=== PATIENT | female | born 1995 | race Caucasian/White ===

== ENCOUNTER → 2017-06-18 | Outpatient (CLI) | payer BC ==
--- NOTE | 2017-06-18 15:07 | DIAGNOSTIC IMAGING REPORT ---
CHEST 2 VIEWS ROUTINE HISTORY: 21 years-old Female R09.89,J11.1 acute abnormal breath sounds COMPARISON: None available TECHNIQUE: PA and lateral views of the chest FINDINGS: Cardiomediastinal and hilar silhouettes are within normal limits. There is no pneumothorax, pleural effusion, focal airspace consolidation or overt pulmonary edema. Bones of the chest appear grossly intact. IMPRESSION: Normal chest radiographs. The above report was generated using voice recognition software. It may contain grammatical, syntax or spelling errors. Electronically signed by: Brady Castro M.D. 06/18/2017 3:05 PM Dictated Date/Time: 06/18/2017 3:04 PM
== END | disposition home or self-care (01) ==
LOC: C.RAD 14:34
PROVIDERS: ATTEND Physician Assistant
DX: R09.89 Other specified symptoms and signs involving the circulatory and respiratory systems (principal); J11.1 Influenza due to unidentified influenza virus with other respiratory manifestations